=== PATIENT | male | born 1990 | race Caucasian/White ===

== ENCOUNTER 2023-06-27 23:29 | Emergency (ER) | payer OTHER, SELFPAY ==
[2023-06-28] MEDS ORDERED: Ondansetron PF 4 MG/2 ML Vial ONE (00:09)
== END 2023-06-28 01:05 | disposition home or self-care (01) ==
LOC: CSHERS 23:29
DX: F10.129 Alcohol abuse with intoxication, unspecified (principal)
CPT/HCPCS: 96374; J2405